=== PATIENT | male | born 1985 | race Two or more races ===

== ENCOUNTER 2019-01-30 19:39 | Emergency (ER) | payer OTHER ==
[~2019-01-30] VITALS: Ht 175.3 cm; Wt 533.0 kg
--- NOTE | 2019-01-30 20:07 | NUR ---
PRESENTED TO THE ER FOR WEAKNESS S/P INGESTION OF APPRIXIMATELY 0.7MG OF FENTANYL. -N/V. - H/A. - CP. REPORTED " FEELING SICK IN STOMACH". VSS.
--- NOTE | 2019-01-30 20:57 | NUR ---
Patient is resting comfortably in bed with eyes closed. Easily aroused. VSS. pt nied SI
--- NOTE | 2019-01-30 21:30 | NUR ---
Patient discharged in custody in stable condition. Rx and Written and verbal after care instructions given. Patient verbalizes understanding of instruction.
[2019-01-30 22:34] VITALS: BP 123/75
== END 2019-01-30 21:30 ==
LOC: ER 19:40
DX: T40.601A Poisoning by unspecified narcotics, accidental (unintentional), initial encounter (principal); F17.200 Nicotine dependence, unspecified, uncomplicated; Z60.2 Problems related to living alone; Y92.89 Other specified places as the place of occurrence of the external cause